=== PATIENT | female | born 1960 | race Caucasian/White ===

== ENCOUNTER → 2025-07-03 11:53 | Outpatient (REF) | payer OTHER, SELFPAY | LOC: RAD 11:53 | PROVIDERS: ATTENDING PHYSICIAN Physician Assistant | DX: M79.89 Other specified soft tissue disorders (principal); I83.90 Asymptomatic varicose veins of unspecified lower extremity; R09.89 Other specified symptoms and signs involving the circulatory and respiratory systems | CPT/HCPCS: 93971 ==

== ENCOUNTER → 2025-08-24 14:57 | Outpatient (REF) | payer OTHER, SELFPAY | LOC: WDC 14:57 | PROVIDERS: ATTENDING PHYSICIAN Family Medicine | DX: Z12.31 Encounter for screening mammogram for malignant neoplasm of breast (principal) | CPT/HCPCS: 77063; 77067 ==